=== PATIENT | female | born 1995 | race Two or more races ===

== ENCOUNTER 2020-07-29 21:28 | Inpatient (IN) | payer SELFPAY ==
[~2020-07-29] VITALS: Ht 165.1 cm; Wt 78.5 kg
[2020-07-29 22:46] LABS: Urine Bacteria NONE SEEN /hpf (None Seen); Urine Blood Negative /uL (Negative); Urine Mucus FEW (None Seen); Urine Specific Gravity 1.035 (1.001-1.035); Urine WBC 1 /hpf (0 - 5)
[2020-07-29 22:59] LABS: Basophils # (auto) 0 10 ^3/uL (0-0.2); Basophils % (auto) 0.3 % (0.0-2.0); Eosinophils # (auto) 0 10 ^3/uL (0-0.8); Eosinophils % (auto) 0.1 % (0.0-7.0); Hematocrit 39.2 % (36.0-46.0); Hemoglobin 13.1 g/dL (12.2-16.2); Lymphocytes # (auto) 1.3 10 ^3/uL (0.4-5.4); Lymphocytes % (auto) 9.9 % (10.0-50.0); Mean Corpuscular Hemoglobin 27.7 pg (28.0-32.0); Mean Corpuscular Hgb Conc. 33.3 g/dL (32.0-36.0); Monocytes # (auto) 1.1 10 ^3/uL (0-1.3); Monocytes % (auto) 8.4 % (0.0-12.0); Neutrophils # (auto) 10.5 10 ^3/uL (1.6-8.6); Neutrophils % (auto) 81.3 % (37.0-80.0); Nucleated Red Blood Cells % 0.9 %; Platelet Count (auto) 310 10^3/uL (140-450); Red Blood Cells 4.73 10^6/uL (4.0-5.20); Red Cell Distribution Width 13.8 % (11.8-14.3); White Blood Cell 12.8 10^3/uL (4.4-10.8)
[2020-07-29 23:13] LABS: Albumin 4.1 g/dL (3.4-5.0); Calcium 8.9 mg/dL (8.5-10.1); Magnesium 2.3 mg/dL (1.6-2.6); Potassium 3.6 mmol/L (3.5-5.1)
[2020-07-29 23:17] LABS: BUN/Creatinine Ratio 15.9; Total Protein 8.4 g/dL (6.4-8.2)
[2020-07-30] MEDS ORDERED: D5W/SOD CHL 0.45%/KCL 20MEQ 1,000 ML IV ONE (06:00)
[2020-07-30] MEDS: metroNIDAZOLE 500MG/100ML 100 ML IV SCH ×3 (07:00→22:00)
[2020-07-30 07:20] LABS: INR 1.05 (0.9-1.15); Partial Thromboplastin Time 25.9 sec (23.0-31.2)
[2020-07-30 09:30] VITALS: BP 127/75
[2020-07-30] MEDS: cefTRIAXone 1GM/50ML D5W 50 ML IV SCH (10:13)
[2020-07-30] MEDS: PANTOPRAZOLE 40 MG/10 ML VIAL INJ IV SCH (10:14)
[2020-07-30 22:36] VITALS: BP 109/62
[2020-07-31 05:30] VITALS: BP 105/56
[2020-07-31] MEDS: metroNIDAZOLE 500MG/100ML 100 ML IV SCH ×3 (05:47→21:08)
[2020-07-31 05:52] LABS: Basophils # (auto) 0 10 ^3/uL (0-0.2); Basophils % (auto) 0.5 % (0.0-2.0); Eosinophils # (auto) 0.1 10 ^3/uL (0-0.8); Eosinophils % (auto) 1.2 % (0.0-7.0); Hematocrit 37.6 % (36.0-46.0); Hemoglobin 12.7 g/dL (12.2-16.2); Lymphocytes # (auto) 1.7 10 ^3/uL (0.4-5.4); Lymphocytes % (auto) 28.7 % (10.0-50.0); Mean Corpuscular Hemoglobin 28.2 pg (28.0-32.0); Mean Corpuscular Hgb Conc. 33.8 g/dL (32.0-36.0); Mean Corpuscular Volume 83.4 fL (80.0-100.0); Monocytes # (auto) 0.5 10 ^3/uL (0-1.3); Monocytes % (auto) 8.1 % (0.0-12.0); Neutrophils # (auto) 3.7 10 ^3/uL (1.6-8.6); Neutrophils % (auto) 61.5 % (37.0-80.0); Platelet Count (auto) 274 10^3/uL (140-450); Red Blood Cells 4.51 10^6/uL (4.0-5.20); Red Cell Distribution Width 14.2 % (11.8-14.3)
[2020-07-31 06:34] LABS: Albumin 3.5 g/dL (3.4-5.0); BUN/Creatinine Ratio 12.3; Bilirubin, Total 0.6 mg/dL (0.2-1.0); Calcium 8.7 mg/dL (8.5-10.1); Potassium 4.3 mmol/L (3.5-5.1); Total Protein 7.4 g/dL (6.4-8.2)
[2020-07-31 08:27] VITALS: BP 179/71
[2020-07-31] MEDS: cefTRIAXone 1GM/50ML D5W 50 ML IV SCH (09:11)
[2020-07-31] MEDS: PANTOPRAZOLE 40 MG/10 ML VIAL INJ IV SCH (09:11)
[2020-07-31] MEDS ORDERED: NEOSTIGMINE 1 MG/ML INJ (10mg/10ML VIAL) ONE (09:59)
[2020-07-31] MEDS ORDERED: SODIUM CHLORIDE LOCK 10 ML ONE (09:59)
[2020-07-31] MEDS ORDERED: fentaNYL CITRATE 100 MCG/2 ML VL ONE (09:59)
[2020-07-31] MEDS ORDERED: MEPERIDINE HCL (25 MG/ML) 1ML VIAL ONE (09:59)
[2020-07-31] MEDS ORDERED: GLYCOPYRROLATE 0.2 MG/ML 1ML VIAL ONE (09:59)
[2020-07-31] MEDS ORDERED: MIDAZOLAM HCL 1MG/1ML-2 ML VIAL ONE (09:59)
[2020-07-31] MEDS ORDERED: ONDANSETRON HCL 4 MG/2 ML VIAL ONE (09:59)
[2020-07-31] MEDS ORDERED: ROCURONIUM 10MG/ML 10ML VIAL IV ONE (09:59)
[2020-07-31] MEDS ORDERED: PROPOFOL 10 MG/ML 20 ML IV ONE (10:00)
[2020-07-31] MEDS ORDERED: MORPHINE SULFATE 4 MG/ML SYR/VIAL IV PRN (10:15)
[2020-07-31] MEDS ORDERED: HYDROmorphone HCL 2 MG/ML VL IV PRN ×2 (10:15)
[2020-07-31] MEDS ORDERED: METOCLOPRAMIDE HCL 5MG/ml INJ 2ml VIAL IV PRN (10:15)
[2020-07-31] MEDS ORDERED: BUPIVACAINE 0.25% INJ 50ML VIAL ONE (10:42)
[2020-07-31] MEDS: ONDANSETRON HCL 4 MG/2 ML VIAL IV PRN (13:13)
[2020-07-31] MEDS: MORPHINE SULF INJ 2 MG/ML SYRINGE 1ML IV PRN ×2 (15:38→19:59)
[2020-07-31] MEDS: D5W/SOD CHL 0.45%/KCL 20MEQ 1,000 ML IV SCH ×2 (15:38→21:45)
[2020-07-31 16:28] VITALS: BP 120/80
[2020-07-31 22:15] VITALS: BP 103/55
[2020-08-01] MEDS: MORPHINE SULF INJ 2 MG/ML SYRINGE 1ML IV PRN ×3 (01:58→11:48)
[2020-08-01 05:21] VITALS: BP 113/72
[2020-08-01] MEDS: metroNIDAZOLE 500MG/100ML 100 ML IV SCH ×3 (06:01→22:29)
[2020-08-01] MEDS: ONDANSETRON HCL 4 MG/2 ML VIAL IV PRN (06:02)
[2020-08-01 07:11] LABS: Basophils # (auto) 0 10 ^3/uL (0-0.2); Basophils % (auto) 0.2 % (0.0-2.0); Eosinophils # (auto) 0 10 ^3/uL (0-0.8); Hematocrit 38.2 % (36.0-46.0); Hemoglobin 12.7 g/dL (12.2-16.2); Lymphocytes # (auto) 1.4 10 ^3/uL (0.4-5.4); Mean Corpuscular Hemoglobin 27.9 pg (28.0-32.0); Mean Corpuscular Hgb Conc. 33.3 g/dL (32.0-36.0); Mean Corpuscular Volume 83.9 fL (80.0-100.0); Monocytes # (auto) 1.4 10 ^3/uL (0-1.3); Monocytes % (auto) 9.6 % (0.0-12.0); Neutrophils # (auto) 11.5 10 ^3/uL (1.6-8.6); Neutrophils % (auto) 80.2 % (37.0-80.0); Nucleated Red Blood Cells % 0.1 %; Platelet Count (auto) 331 10^3/uL (140-450); Red Blood Cells 4.56 10^6/uL (4.0-5.20); White Blood Cell 14.3 10^3/uL (4.4-10.8)
[2020-08-01 07:39] LABS: Albumin 3.7 g/dL (3.4-5.0); Bilirubin, Total 0.5 mg/dL (0.2-1.0); Calcium 8.7 mg/dL (8.5-10.1); Magnesium 2.4 mg/dL (1.6-2.6); Total Protein 7.9 g/dL (6.4-8.2)
[2020-08-01 09:00] VITALS: BP 102/55
[2020-08-01] MEDS: cefTRIAXone 1GM/50ML D5W 50 ML IV SCH (09:38)
[2020-08-01] MEDS: PANTOPRAZOLE 40 MG/10 ML VIAL INJ IV SCH (09:39)
[2020-08-01] MEDS: D5W/SOD CHL 0.45%/KCL 20MEQ 1,000 ML IV SCH (09:40)
[2020-08-01 12:41] VITALS: BP 114/55
[2020-08-01] MEDS: SODIUM CHLORIDE 0.9% 1,000 ML IV SCH (13:00)
[2020-08-01 16:55] VITALS: BP 103/66
[2020-08-01 20:16] VITALS: BP 118/68
[2020-08-01 22:00] VITALS: BP 118/68
[2020-08-02] MEDS: MORPHINE SULF INJ 2 MG/ML SYRINGE 1ML IV PRN (01:46)
[2020-08-02] MEDS: SODIUM CHLORIDE 0.9% 1,000 ML IV SCH (02:16)
[2020-08-02] MEDS: ONDANSETRON HCL 4 MG/2 ML VIAL IV PRN (02:23)
[2020-08-02 05:00] VITALS: BP 113/56
[2020-08-02 05:52] LABS: Basophils # (auto) 0 10 ^3/uL (0-0.2); Basophils % (auto) 0.4 % (0.0-2.0); Eosinophils # (auto) 0 10 ^3/uL (0-0.8); Eosinophils % (auto) 0.2 % (0.0-7.0); Hematocrit 29.3 % (36.0-46.0); Hemoglobin 10.3 g/dL (12.2-16.2); Lymphocytes # (auto) 2.2 10 ^3/uL (0.4-5.4); Lymphocytes % (auto) 26.6 % (10.0-50.0); Mean Corpuscular Hemoglobin 29.3 pg (28.0-32.0); Mean Corpuscular Hgb Conc. 35.3 g/dL (32.0-36.0); Mean Corpuscular Volume 83.2 fL (80.0-100.0); Monocytes # (auto) 0.7 10 ^3/uL (0-1.3); Monocytes % (auto) 8.7 % (0.0-12.0); Neutrophils # (auto) 5.4 10 ^3/uL (1.6-8.6); Neutrophils % (auto) 64.1 % (37.0-80.0); Platelet Count (auto) 218 10^3/uL (140-450); Red Blood Cells 3.52 10^6/uL (4.0-5.20); Red Cell Distribution Width 14.1 % (11.8-14.3); White Blood Cell 8.4 10^3/uL (4.4-10.8)
[2020-08-02] MEDS: metroNIDAZOLE 500MG/100ML 100 ML IV SCH ×2 (06:10→13:41)
[2020-08-02 06:22] LABS: Potassium 3.7 mmol/L (3.5-5.1)
[2020-08-02 06:32] LABS: Alanine Aminotransferase 103 U/L (13-56); Albumin 2.8 g/dL (3.4-5.0); Alkaline Phosphatase 87 U/L (45-117); Aspartate Aminotransferase 23 U/L (15-37); Bilirubin, Direct < 0.1 mg/dL (0-0.2); Bilirubin, Total 0.3 mg/dL (0.2-1.0); Total Protein 5.9 g/dL (6.4-8.2)
[2020-08-02 08:00] VITALS: BP 128/85
[2020-08-02 08:38] VITALS: BP 128/85
[2020-08-02] MEDS: cefTRIAXone 1GM/50ML D5W 50 ML IV SCH (09:09)
[2020-08-02] MEDS: PANTOPRAZOLE 40 MG/10 ML VIAL INJ IV SCH (10:08)
[2020-08-02] MEDS ORDERED: LEVO500T31 PO (10:54)
[2020-08-02] MEDS ORDERED: METR500T PO (10:54)
[2020-08-02 15:40] VITALS: BP 116/64
[2020-08-02 17:04] VITALS: BP 113/77
== END 2020-08-02 16:30 | disposition home or self-care (01) | DRG 418 ==
LOC: ER 21:28 → OVERFLOW 07-30 05:54 → WEST WING 07-30 09:13
PROVIDERS: ADMIT Nurse Practitioner Acute Care; ATTEND Internal Medicine
PROC: 0FT44ZZ Resection of Gallbladder, Percutaneous Endoscopic Approach (ICD-10-PCS; principal; 2020-07-31 10:26)
DX: K80.00 Calculus of gallbladder with acute cholecystitis without obstruction (principal); R65.10 Systemic inflammatory response syndrome (SIRS) of non-infectious origin without acute organ dysfunction; F12.90 Cannabis use, unspecified, uncomplicated; Z20.822 Contact with and (suspected) exposure to COVID-19; K76.0 Fatty (change of) liver, not elsewhere classified; E78.00 Pure hypercholesterolemia, unspecified; Z83.3 Family history of diabetes mellitus
CPT/HCPCS: 36415; 74176; 76705; 80053; 80076; 81001; 82150; 83690; 83735; 84132; 84443; 84702; 85025; 85610; 85730; 86850; 86900; 86901; 87426; 96360; C9113; G0378; J0696; J2250; J2405; J2704; J3490